=== PATIENT | female | born 1980 | race Caucasian/White ===

== ENCOUNTER 2022-10-08 07:25 | Outpatient (CLI) | payer OTHER, SELFPAY ==
[2022-10-08 07:56] VITALS: PULSE 62; O2SAT 95
[2022-10-08 07:58] VITALS: BP 112/66; PULSE 68; RESP 16; TEMP 37
--- NOTE | 2022-10-08 11:19 | PC.OBNST ---
NST Note NST Note Start: 10/08/22 07:50 Freq: ONCE Status: Discharge Protocol: Document 10/08/22 11:17 EGM (Rec: 10/08/22 11:18 EGM [id number]) NST Note 1 Para (# of births) 0 EDC 10/06/22 Gestational Age In Weeks & Days 40 Weeks & 2 Days High Risk Factors Advanced Maternal Age Patient Presented with Complaint(s) of Contractions/cramping Reactive Yes Appropriate for Gestational Age Yes CLARENCE Bro, RN Date 10/08/22 Reactive Yes Appropriate for Gestational Age Yes CLARENCE Colbert, CLARENCEC Date 10/08/22 OB NST charge Yes Complete NST Note via Write Note Yes The provider's electronic signature indicates the NST is reactive/appropriate for gestational age. *Note to provider: If an addendum is required, open the patient's chart and click on the note under the Nurse/Allied Health tab.
== END 2022-10-08 10:30 | disposition home or self-care (01) ==
LOC: OB OUT 07:29 → OB 07:30
PROVIDERS: Visit Provider Advanced Practice Midwife
DX: O09.523 Supervision of elderly multigravida, third trimester (principal); Z3A.40 40 weeks gestation of pregnancy
CPT/HCPCS: 59025; 99213

== ENCOUNTER 2022-10-09 00:01 | Inpatient (IN) | payer OTHER, SELFPAY ==
[2022-10-08 23:26] VITALS: PULSE 76; O2SAT 98
[2022-10-08 23:32] VITALS: BP 115/59; PULSE 93
[2022-10-08 23:58] LABS: Amnisure Rom* POSITIVE
[2022-10-09] VITALS (37 sets, daily range): BP systolic 93–125; BP diastolic 51–73; PULSE 64–90; RESP 16–18; TEMP 36.6–37.3; O2SAT 91–97; BMI 29.2
[2022-10-09] MEDS: AMPICILLIN 2 GM in 0.9 % SODIUM CHLORIDE Mini-bag 100 ML IVPB (00:42)
--- NOTE | 2022-10-09 01:28 | PM.OBHPLI ---
OB - H&P: HPI Labor/Induction History of Present Illness Date Seen: 10/09/22 Chief Complaint: Ildefonso is a 41 year old 1 para 0 at 40 3/7 weeks gestation by LMP, who presents with rupture of membranes of clear fluid that occurred about 6 pm. Chief complaint: Maternity : 1 Para: 0 Date of last menstrual period: 12/30/21 Estimated date of delivery: 10/06/22 Gestational age based on last menstrual period: 40 Narrative: Ildefonso Richardson is a 41 year old female at 40 3/7 weeks gestation. She was seeing providers at [facility] for care, prior to transferring there she was receiving care at [facility]. She transfered due to relocation but reports she desired CNM care. She presented earlier at this facility in early labor after [facility] was on divert. She desired CNM care. She was discharged home when contractions spaced out but stated she desired to return to [facility] for delivery. Records have been requested, some are here. She reports that she was able to rest after going home. She had return of irregular contractions yesterday evening. Around 6 pm she noted some leaking but thought it was her mucous plug or just increased discharge. She presented to Labor and Delivery around 11 pm. The leaking continued and her amnisure was positive. She continues to have irregular contractions about every 2-5 minutes, varying in intensity. Her labor is supported by her , Rakesh. History of Present Dating criteria: based on LMP care: good care Ultrasounds: normal 1st trimester US, normal mid trimester US (Level II) and other (BPP) Labs Blood type: B (+) positive Rubella: immune RPR/VDLR: nonreactive GBS status: positive HBsAG: negative Narrative: No labs included in transfer records. OB Labs: Records verbally reported from Dr. Tk Roa at [facility] 10/08 Blood type: B+, antibody screen negative. Rubella: Immune RPR: non-reactive HBsAg: negative HIV: negative [id number]: Low risk 1hr gtt: pt reported she passed, not documented in transfer records GBS: Positive IMAGINst trimester: no records received Anatomy scan: 05/25/2022. No abnormalities noted, EFW 55%ile, SIUP. Placenta: posterior Other: 10/04/2022 BPP 10/17 Review of Systems Status of ROS: Reports: 10 or more systems reviewed and unremarkable except as noted in History and below Meds Home Medications and Allergies Home Medications Medication Instructions Recorded Confirmed Type aspirin 81 mg tablet,delayed 81 mg PO DAILY 10/08/22 10/08/22 History release (Adult Aspirin Regimen) levothyroxine 25 mcg/mL oral 13 mcg PO DAILY 10/08/22 10/08/22 History solution vit no.95-ferrous 1 tab PO DAILY 10/08/22 10/08/22 History fumarate 28 mg-folic acid 800 mcg tablet ( Multivitamins) Allergies Allergy/AdvReac Type Severity Reaction Status Date / Time No Known Allergies Allergy Verified 10/08/22 23:37 OB - H&P: Exam Physical Exam: Vital signs: Pulse BP Pulse Ox 81 122/68 98 10/09/22 01:24 10/09/22 01:24 10/08/22 23:26 Temperature 98.6 F 10/09/22 01:24 Pulse Rate 81 10/09/22 01:24 Respiratory Rate 18 10/09/22 01:24 Blood Pressure 122/68 10/09/22 01:24 Blood Pressure Cuca n 88 10/09/22 01:24 Pulse Oximetry 98 10/08/22 23:26 Narrative: Vitals Reviewed Constitutional:? Alert and oriented x3 HEENT:? Normocephalic, atraumatic Neck:? Supple Lungs:? Clear to auscultation bilaterally Heart:? Regular rate and rhythm, no murmur, rub or gallop Abdomen:? Soft, nontender, and gravid. Vertex by Vidal's, confirmed with cervical exam (by RN). Extremities:? No edema or erythema Cervix: 2.5 cm/80%/-1 station/vertex; ROM clear fluid NST: 140 bpm/moderate variability/15x15 accelerations/early decelerations/contractions 2-5 minutes OB - Problem Based A/P Additional Plan (1) PROM with onset of labor within 24 hours of rupture: Status: Acute (2) Pain during labor: Status: Acute (3) 40 weeks gestation of : Status: Acute (4) Advanced maternal age, 1st : Status: Acute (5) Group B Streptococcus carrier state affecting : Status: Acute Plan ASSESSMENT:? 41 at 40 3/7 weeks gestation? complicated by:?AMA, hypothyroid? Labor type: Spontaneous, Early labor? Category 1 FHR pattern.?? Labor complicated by: PROM, GBS +? GBS positive? ? PLAN:? 1. Routine intrapartum cares as ordered. Continue with expectant management? 2. Monitoring per policy, intermittent? 3. Planning unmedicated . Candidate for analgesia of choice if desired. Patient has a detailed plan.?? 4. Patient encouraged to reposition and ambulate to promote physiologic labor and .?She desires to labor alone with partner. 5. GBS phrophylaxis initiated for GBS positive status. Will treat with antibiotics per protocol, Penicillin. 6. Need labs, Hgb, Plts, Blood type. Will attempt to get more complete records when able. No physical lab records avaliable. 7. Anticipate ? Delivery/Labor/Induction Plan Plan: expectant management
[2022-10-09 02:34] LABS: Basophils Percent Auto 0.1 % (0.0-3.0); Hematocrit 36.5 % (33.0-51.0); Hemoglobin* 12.8 gm/dL (12.0-16.0); Immature Granulocytes Pct Auto 0.4 %; Lymphocytes Percent Auto 8.8 % (20-44); Mean Corpuscular HGB Conc 35 gm/dL (32-36); Mean Corpuscular Hemoglobin 33 pg (26-34); Mean Corpuscular Volume 94 fL (80-100); Monocytes Percent Auto 4.7 % (0.0-11.0); Platelet Count* 185 K/uL (140-440); Red Blood Count 3.89 m/uL (4.00-5.20); White Blood Count* 11.22 K/uL (4.50-11.00)
[2022-10-09 02:36] LABS: Slide Review Reflex No
--- NOTE | 2022-10-09 02:37 | PC.NURSE ---
Patient reports one hour glucose monitoring score of 116. Will call previous care team for confirmation in the AM.
[2022-10-09] MEDS: hydrOXYzine pamoate 25 MG CAPSULE 100 MG PO (03:37)
[2022-10-09] MEDS: MORPHINE 10 MG/ML inj IM (03:37)
[2022-10-09] MEDS: AMPICILLIN 1 GM in 0.9 % SODIUM CHLORIDE Mini-bag 100 ML IVPB ×4 (05:08→16:58)
--- NOTE | 2022-10-09 07:24 | PM.OBPNL ---
Subjective Time Seen by Provider: 07:24 Date Seen: 10/09/22 Narrative: Ildefonso is standing by the bedside laboring w/ ctx. She received morphine and Vistaril last night to assist with sleep. She states ctx fairly mild and spaced overnight, but since being up feel stronger and closer together. She is coping well with labor pain/contractions. Her partner is with her for support. She would like to continue with non-pharmacologic methods for comfort and pain management.?? Objective Exam: VSS, afebrile General Appearance:? Calm, cooperative. No acute distress. ? Psychiatric Exam: Alert and oriented, appropriate affect Abdomen: Gravid Ctx: ?Q 2-7 min apart. ?Mild - Moderate FHTs: Baseline: 130. Variability: min. Accels: present. Decels: occ variable and late decelerations. SVE: deferred at this time Membranes: SROM X 13 hours ? Vital Signs: Last Vital Signs Temp 98 F 10/09/22 07:18 Pulse 75 10/09/22 07:16 Resp 16 10/09/22 07:18 BP 119/67 10/09/22 07:16 Pulse Ox 97 10/09/22 07:17 Plan Plan: Assessment:?? G 1 P0 at 40.3 weeks gestation?? GBS positive Patient is coping well with challenges of labor.?? Labor type: Spontaneous, Early labor? complicated by: -AMA -hypothyroid Labor complicated by: -ROM, ?not having adequate ctx -minimal variability w/ accels. Rare variable and late decel noted ? Plan:?? Reviewed recommendation for pitocin as ctx do not appear to be adequate, including increased risk of infection after ROM. She would prefer to see if ctx will supervisor picking crew with movement and positioning first. Will continue to monitor for signs of chorio. SVE deferred at this time to decrease risk of infection. Decreased variability likely r/t pain medications given last night. Will continue to monitor and watch for increasingly regular decels. Continue with routine intrapartum cares as ordered.?? Patient encouraged to move and change positions to promote physiologic labor and .?? Nonpharmacologic comfort measures per patient preference. Candidate for analgesia of choice if desired. Patient declines waterbirth Anticipate progress to NVD.
[2022-10-09] MEDS: OXYTOCIN 10 UNIT/ML INJ IM (18:51)
[2022-10-09] MEDS: miSOPROStoL 800 MCG/4 TABLET PR (18:53)
[2022-10-09] MEDS: METHYLERGONOVINE MALEATE 0.2 MG/ML INJ IM (18:54)
[2022-10-09] MEDS: LACTATED RINGERS 1000 ML 1,000 ML 1200 ML IV (18:58)
[2022-10-09] MEDS: LIDOCAINE 1 % PF 30 ML INJECTION (19:00)
--- NOTE | 2022-10-09 19:46 | W.PM.OBVAGDE ---
OB Procedure Vag Delivery Mother Details Mother Details: The patient is a 41 year-old, 1, Para 0, admitted on 10/09/22 at 40.3 Days gestation. : 1 Para: 1 Weeks Gestation: 40.3 Admission Date: 10/09/22 Additional Details Amniotic Membrane Status: SROM Amniotic Membrane Rupture Date: 10/08/22 Amniotic Membrane Rupture Time: 18:00 Amniotic Membrane Fluid Description: Clear Analgesia/Anesthesia Type: Local (For repair only) Waterbirth: No Pitcoin: No (For AMTSL only) Labor Onset: 13:26 Complete: 17:43 Pushin:40 Heart: heart tones during second stage were 135,min variability, variably decels w/ ctx/pushing, good return to baseline between. Delivery Details Delivery Date: 10/09/22 Delivery Time: 18:51 Route of delivery: Infant Gender: Female Infant Viability: Alive; Heart Rate Present Position at Delivery: OA Delivery Details: Ildefonso's ctx increased in intensity and became closer together just after lunch. She continued to labor with good progress, noting increasing pressure and slight urge to push. SVE done, anterior lip, thin and stretchy. Option of laboring down or trying to reduce reviewed, she opted to try to reduce it. Anterior lip easily reduced w/ next push, noted to be complete, and continued to push in various positions to facilitate descent. At 1851 a viable? female infant delivered in vertex OA presentation over intact perineum via spontaneous vaginal?delivery. ?Infant was placed on maternal abdomen. ?Increased bleeding noted shortly after, and pitocin given. Brisk bleeding continued, decision made to deliver placenta. Cord was clamped and cut. The placenta delivered easily at 185, complete. Brisk bleeding continued and cytotec and Methergine given. Further assessment revealed the fundus was firm and a large amount of the bleeding was coming from bilateral sulcus tears. Pressure held with a sponge on the left side while the right was repaired. Left then repaired. IV fluid bolus infusing. to warmer briefly for further assessment for grunting.? Infant weight pending. ? 8 at 1 minute and 9 at 5 minutes. ?Shoulder dystocia: no. ?Nuchal cord: no. Mother and were stable after?delivery. Lacerations:? Bilateral sulcus lacerations, right with a labial extension, both repaired with 3-0 vicryl.? Anterior periclitoral laceration noted, pressure held, and bleeding resolved. Not deep, and decision made to not repair. Blood loss: 750 mL. Blood loss measurement type: QBL? Sponge and needles counts are correct. 1 Minute Interval Total Score: 8 5 Minute Interval Total Score: 9 Additional Details Shoulder Dystocia: No Placenta Delivery Time: 18:55 Placental Delivery Description: Spontaneous Delivery repair: Vicryl Procedure Done: only Blood Loss: 750 Laceration: Vaginal - 2nd Degree (Bilateral sulcus) Blood Loss Measurement Type: QBL Bakri Used: No Sponge/Need Count Correct: Yes Cord Vessel Description: 3 Vessels Event Summary Status: Mother and were stable after delivery. Disposition: floor
[2022-10-09] MEDS: IBUPROFEN 600 MG TABLET PO (21:10)
[2022-10-09] MEDS: ACETAMINOPHEN 500 MG TABLET 1000 MG PO (23:45)
[2022-10-10 03:54] VITALS: BP 93/59; PULSE 66; RESP 16; TEMP 37.1; O2SAT 95
[2022-10-10 07:05] LABS: Hemoglobin* 9.8 gm/dL (12.0-16.0)
--- NOTE | 2022-10-10 07:34 | PM.OBPNVD1 ---
OB - PN:Subj Subjective Date Seen: 10/10/22 Patient comments OB post-: no complaints, pain well controlled and tolerating diet infant status: and doing well feeding status: exclusively Narrative: Day 1:? Vaginal Delivery at 40 and 2/7 weeks.? ?? Complications:? none? The patient feels well.? The pain is well controlled with current medications.? She has no new complaints.? Urinary output is adequate and she is voiding without difficulty.? Has a good appetite and is tolerating a general diet. She does not yet feel that she is passing flatus and was encouraged to ambulate this morning. Denies abdominal pain and it palpates soft. Has small amount of rubra lochia.? She is ambulating well.? OB - PN: Obj Exam Physical Exam: Vital signs: Temp Pulse Resp BP Pulse Ox O2 Del Method 98.7 F 66 16 93/59 L 95 Room Air 10/10/22 03:54 10/10/22 03:54 10/10/22 03:54 10/10/22 03:54 10/10/22 03:54 10/10/22 03:54 Narrative: GENERAL APPEARANCE:? normal affect, alert, no distress? MOOD:? appropriate? CHEST:? clear to auscultation and percussion? HEART:? regular rate and rhythm? ABDOMEN:? soft, non-tender the uterine fundus is U/2 and off to the right and is appropriate for the stage of recovery.? PERINEUM:? mild edema of the perineum, there is bilateral sulcal tears that are healing well.? EXTREMITIES:? normal and no edema? OB - PN: Obj Data Labs Labs: Laboratory Results - last 24 hr 10/10/22 06:36 Hgb 9.8 L OB - PN: A/P Delivery Assessment and Plan (1) Advanced maternal age, 1st : Status: Acute (2) care following vaginal delivery: Status: Acute (3) Lactating mother: Status: Acute (4) Anemia, : Status: Acute Plan day: 1 Plan: routine care Comments: PO iron supplementation ordered. Anticipate discharge tomorrow.
[2022-10-10 08:37] VITALS: BP 102/66; PULSE 78; RESP 16; TEMP 37.1; O2SAT 96
[2022-10-10] MEDS: FERROUS SULFATE 325 MG TABLET PO (08:48)
[2022-10-10] MEDS: DOCUSATE SODIUM 100 MG CAPSULE PO (08:48)
[2022-10-10 11:57] VITALS: BP 103/67; PULSE 84; RESP 16; TEMP 36.2; O2SAT 96
[2022-10-10 15:43] VITALS: BP 106/67; PULSE 84; RESP 16; TEMP 36.8; O2SAT 96
[2022-10-10] MEDS: IBUPROFEN 600 MG TABLET PO (15:53)
[2022-10-11 00:15] VITALS: BP 95/57; PULSE 85; RESP 16; TEMP 36.8; O2SAT 97
[2022-10-11] MEDS: IBUPROFEN 600 MG TABLET PO (06:20)
[2022-10-11 07:37] VITALS: BP 94/52; PULSE 79; RESP 16; TEMP 36.9; O2SAT 97
[2022-10-11] MEDS: DOCUSATE SODIUM 100 MG CAPSULE PO (07:45)
--- NOTE | 2022-10-11 08:20 | P.DS_ITS ---
DS: Providers Provider Date Seen: 10/11/22 Date of admission: 10/09/22 00:01 Primary care physician: Not a Local Provider Admitting Clinician: Indigo Funes CNM Attending Physician on discharge: Indigo Funes CNM DS: Diagnosis Discharge Diagnosis (1) Lactating mother: Status: Acute (2) Anemia, : Status: Acute (3) care and examination immediately after delivery: Status: Acute Exam Narrative: Exam Narrative: GENERAL APPEARANCE:? normal affect, alert, no distress MOOD:? appropriate CHEST:? clear to auscultation HEART:? regular rate and rhythm ABDOMEN:? soft, non-tender the uterine fundus is 1 below Umbilicus, Midline and is appropriate for the stage of recovery. PERINEUM:? mild edema of the perineum, there is a vaginal laceration, that is healing well. EXTREMITIES:? normal and trace edema Const: Vital Signs, click to edit/add: Vital Signs - 24 hr 10/10/22 08:37 10/10/22 11:57 10/10/22 15:43 Temperature 98.7 F 97.2 F L 98.3 F Pulse Rate [Pulse Oximeter] 78 84 84 Respiratory Rate 16 16 16 Blood Pressure [Ri ght Arm] 102/66 103/67 106/67 Pulse Oximetry 96 96 96 Oxygen Delivery Me thod Room Air Room Air Room Air 10/11/22 00:15 10/11/22 07:37 Temperature 98.2 F 98.5 F Pulse Rate [Pulse Oximeter] 85 79 Respiratory Rate 16 16 Blood Pressure [Ri ght Arm] 95/57 L 94/52 L Pulse Oximetry 97 97 Oxygen Delivery Me thod Room Air Room Air Documenting provider has reviewed patient's vital signs: yes OB - DS: Summary Hospital Course Hospital Course: Ildefonso is a 41 y.o. G 1 P 1 who was admitted to [facility] for PROM w/ spontaneous onset of labor. ?She had an uncomplicated NVD. The patient feels well. ?The pain is well controlled with current medications. ?She has no new complaints. ?She is breast feeding and reports things are going well. the patient has done well.? Vitals have been stable.? She has remained afebrile.? Has a good appetite, is tolerating a general diet. ?She is voiding without difficulty.? She is passing gas and has not had a bowel movement.? She is ambulating and denies any dizziness.? Has scant amount of rubra lochia. Problems: none plan: Discharge home with baby. Follow up in 2 weeks and 6 weeks. , may see if needed Hgb 9.8, recommend iron supplement . Ordered. Peripartum Data Infant delivery method: Vaginal Laceration description: Vaginal - 2nd Degree (Bilateral) complications: none Bennett Gender: Female Discharge Plan: Home Status at Discharge Functional status at discharge: independent ambulation Overall status at discharge: patient is progressing back to baseline Time Spent with Patient Time attestation: Total time spent providing and/or coordinating discharge services: Discharge Plan Discharge Disposition: Home, Self-Care Date of Admission: 10/09/22 00:01 Primary Care Provider: Provider,Not a Local Condition: Stable Anticipated Discharge Date/Time: 10/11/22 12:00 Discharge Medications: New docusate sodium 100 mg Capsule 100 mg PO DAILY Qty: 90 0RF acetaminophen 500 mg Tablet 1,000 mg PO Q6H PRNQty: 0 0RF ferrous sulfate 325 mg (65 mg iron) Tablet 325 mg PO Q48H Qty: 90 0RF ibuprofen 600 mg Tablet 600 mg PO Q6H PRNQty: 60 0RF Continued PNV cmb#95-ferrous fumarate-FA [ Multivitamins] 28 mg iron- 800 mcg ta blet 1 tab PO DAILY levothyroxine 25 mcg/mL solution 13 mcg PO DAILY Discontinued aspirin [Adult Aspirin Regimen] 81 mg tablet,delayed release (DR/EC) 81 mg PO DAILY Discharge Orders: Discharge Order (Routine); Ordered 10/11/22 Ordered By: Indigo Funes Patient Education: OB Over the Counter Medication Information, OB Vaginal/Breast Feeding Additional Instructions: Discharge instructions were reviewed with the patient including signs and symptoms of infection and home going medications Nothing vaginally for 6 weeks: no tampons or intercourse Do not drive while taking narcotic pain medication(s) Off Work or School for 6 weeks 2-week visit: discuss feeding concerns, review control options and screen for anxiety/depression. 6-week visit for an annual exam. consultation services are available to all mothers and babies for the first year after delivery.? To make an appointment, please call [phone]. Activity Level: Activity as Tolerated Discharge Diet: Regular Follow Up Appointments: [facility] [Provider Group] Forms: [employer] Info Instructions
== END 2022-10-11 13:20 | disposition home or self-care (01) | DRG 806 ==
LOC: OB OUT 10-12 11:36 → OB 10-12 11:36
PROVIDERS: Advanced Practice Midwife; Admitting Provider Advanced Practice Midwife; Visit Provider Advanced Practice Midwife
DX: O42.02 Full-term premature rupture of membranes, onset of labor within 24 hours of rupture (principal); D62 Acute posthemorrhagic anemia; Z37.0 Single live birth; O71.4 Obstetric high vaginal laceration alone; O90.81 Anemia of the puerperium; O99.824 Streptococcus B carrier state complicating childbirth; O99.284 Endocrine, nutritional and metabolic diseases complicating childbirth; E03.9 Hypothyroidism, unspecified; Z3A.40 40 weeks gestation of pregnancy
CPT/HCPCS: 36415; 84112; 85018; 85025; 86850; 86900; 86901; 99213; A9270; J0290; J2001; J2210; J2270; J2590; J7120

== ENCOUNTER 2024-01-09 13:59 | Outpatient (CLI) | payer OTHER, SELFPAY ==
[2024-01-11 14:48] LABS: HPV Source Cervical; HPV, High Risk by TMA Not Detected
== END 2024-01-09 14:00 | disposition home or self-care (01) ==
PROVIDERS: Visit Provider Advanced Practice Midwife
DX: Z01.419 Encounter for gynecological examination (general) (routine) without abnormal findings (principal); E03.9 Hypothyroidism, unspecified; Z12.4 Encounter for screening for malignant neoplasm of cervix; Z11.51 Encounter for screening for human papillomavirus (HPV)
CPT/HCPCS: 84443; 87624; 87625; 88141; 88142

== ENCOUNTER 2024-04-17 10:00 | Outpatient (RCR) | payer OTHER, SELFPAY | END 2024-08-15 23:59 | disposition home or self-care (01) | PROVIDERS: Visit Provider Advanced Practice Midwife | DX: N81.89 Other female genital prolapse (principal); Z51.89 Encounter for other specified aftercare | CPT/HCPCS: 97110; 97140; 97162; 97535 ==

== ENCOUNTER 2024-04-25 08:13 | Outpatient (CLI) | payer OTHER, SELFPAY | END 2024-04-25 08:14 | disposition home or self-care (01) | LOC: US 08:14 | PROVIDERS: Visit Provider Registered Nurse | DX: Z34.91 Encounter for supervision of normal pregnancy, unspecified, first trimester (principal); O20.9 Hemorrhage in early pregnancy, unspecified; Z3A.08 8 weeks gestation of pregnancy | CPT/HCPCS: 76817; 84443 ==

== ENCOUNTER 2024-05-06 17:06 | Outpatient (CLI) | payer OTHER, SELFPAY | END 2024-05-06 17:07 | disposition home or self-care (01) | LOC: US 17:07 | PROVIDERS: Visit Provider Registered Nurse | DX: O28.8 Other abnormal findings on antenatal screening of mother (principal); O20.9 Hemorrhage in early pregnancy, unspecified; Z3A.09 9 weeks gestation of pregnancy | CPT/HCPCS: 76817 ==

== ENCOUNTER 2024-08-29 14:04 | Outpatient (CLI) | payer OTHER, SELFPAY ==
--- NOTE | 2024-08-29 14:00 | CRLHL7_ITS ---
For Patients: As a result of the Century Cures Act, medical imaging exams and procedure reports are released immediately into your electronic medical record. You may view this report before your referring provider. If you have questions, please contact your health care provider. INDICATION: First trimester dating and viability. TECHNIQUE: Ultrasound OB pelvis transvaginal. Real-time khan-scale imaging of the pelvis was performed. COMPARISON: None. FINDINGS: Intrauterine gestation: Single. heart activity (bpm): None detected Brice-rump length: 2 cm. Gestational sac: 3.5 cm Estimated ultrasound age: 8 weeks 4 days. DRE by ultrasound: 04/06/2025. Yolk sac: Normal. Perigestational hemorrhage: None. Ovaries and adnexa: The bilateral ovaries are unremarkable. Right corpus luteal cyst. Suspicious pelvic fluid collections: Small subchorionic hemorrhage adjacent to the gestational sac measuring 1 x 0.3 x 0.4 cm.. IMPRESSION: Intrauterine gestation with a crown-rump length of 2 cm and no cardiac activity detected. Findings are compatible with demise. Please correlate with beta HCG levels. Small subchorionic hemorrhage adjacent to the gestational sac measuring up to 1 cm. Dictated by Reyna Lorenzo MD @ 08/29/2024 3:14:18 PM (Electronically Signed)
--- OUTSIDE RECORDS SUMMARY | 2024-08-30 00:52 | XMS_ITS | Clinical Summary ---
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 Gender Identity Not on file Sexual Orientation Not on file Plan of Treatment Health Maintenance Due Date Last Done Comments ADVANCE CARE PLANNING 1979 ANNUAL REVIEW OF HM ORDERS 1979 DIABETES SCREENING 1979 YEARLY PREVENTIVE VISIT 11/22/1982 HIV SCREENING 11/22/1994 HEPATITIS C SCREENING 11/22/1997 HEPATITIS B VACCINE (1 of 3 - 19+ 3-dose series) 11/22/1998 PAP 11/22/2000 DTAP/TDAP/TD VACCINE (1 - Tdap) 11/22/2004 LIPID 2019 MAMMO SCREENING 07/24/2020 07/24/2018 COVID-19 VACCINE (1 - 2023-2 5 season) 2023 PHQ-2 (once per calendar year) 2024 INFLUENZA VACCINE (Season Ended) 2024 ZOSTER VACCINE (1 of 2) 11/22/2029 HPV VACCINE Aged Out No longer eligi ble based on patient's age to complete this topic MENINGITIS VACCINE Aged Out No longer eligible based on patient's age to complete this topic PNEUMOCOCCAL VACCINE: PEDIAT RICS (0 to 5 YEARS) AND AT-RISK PATIENTS (6 to 49 YEARS) Aged Out No longer eligi ble based on patient's age to complete this topic Procedures Procedure Name Priority Date/Time Associated Diagnosis Comments MA SCREENING DIGITAL BILATERAL Routine 07/24/2018 8:06 AM CDT Family history of breast cancer from Last 3 Months or Most Recently Relevant to Health Maintenance Results * *MA Screening Digital Bilateral (07/24/2018 8:06 AM CDT) Anatomical Region Laterality Modality Breast Bilateral Mammography Impressions 07/24/2018 1:45 PM CDT IMPRESSION: BI-RADS CATEGORY: 1 - NEGATIVE. RECOMMENDED FOLLOW-UP: Annual Mammography. The patient will be notified of the results. SABRINA HOLCOMB MD Narrative 07/24/2018 1:45 PM CDT Examination: Bilateral digital screening mammography with computer aided detection, 07/24/2018 8:06 AM. Comparison: None History: No current breast concerns. Paternal grandmother and maternal grandmother both with breast cancer. BREAST DENSITY: Heterogeneously dense. COMMENTS: No suspicious finding. Procedure Note Sabrina Holcomb MD - 07/24/2018 Examination: Bilateral digital screening mammography with computer aided detection, 07/24/2018 8:06 AM. Comparison: None History: No current breast concerns. Paternal grandmother and maternal grandmother both with breast cancer. BREAST DENSITY: Heterogeneously dense. COMMENTS: No suspicious finding. IMPRESSION: BI-RADS CATEGORY: 1 - NEGATIVE. RECOMMENDED FOLLOW-UP: Annual Mammography. The patient will be notified of the results. SABRINA HOLCOMB MD Jerrica Vicente APRN TESTER ELECTRONIC SCALE IMG MAMMOGRAPHY ORD ERABLES Final Result from Last 3 Months or Most Recently Relevant to Health Maintenance Insurance [facility] [employer] Care Teams Memory Care Program Resident Relationship Specialty Start Date End Date No Ref-Primary, Physician PCP - General 10/17/21
--- OUTSIDE RECORDS SUMMARY | 2024-08-30 00:52 | XMS_ITS | Clinical Summary ---
Author Organization [facility] Address [address], [place] [address] Care Team Providers Care Court Officer Name Role Phone Pcp, Pt Declines MD Primary Care Provider [phone] Source Comments You are receiving this document as you are listed as the primary care provider,follow-up provider, or the patient has been referred to you for consultation.This is in compliance with the Medicare and[facility] EHR Incentive Program,which states Providers who transition their patient to another setting of careor provider of care or refers their patient to another provider of care shouldprovide summary care record for each transition of care or referral. [facility] Allergies No known active allergies Medications No known medications Active Problems No known active problems Social History Tobacco Use Types Packs/Day Years Used Date Smoking Tobacco: Never Smokeless Tobacco: Never Alcohol Use Standard Drinks/Week Comments Yes 0 (1 standard drink = 0.6 oz pur e alcohol) 5-7 per week Comments Unknown Sex and Gender Information Value Date Recorded Sex Assigned at Not on file Legal Sex Female 10:08 AM CUSTOMS COMPLIANCE ANALYST Gender Identity Not on file Sexual Orientation Not on file Last Filed Vital Signs Vital Sign Reading Time Taken Comments Blood Pressure 109/63 09/06/2018 2:51 PM CDT Pulse 60 09/06/2018 2:51 PM CDT Temperature 35.7 C (96.3 F) 02/13/2018 8:11 AM CUSTOMS COMPLIANCE ANALYST Respiratory Rate 12 09/06/2018 2:51 PM CDT Oxygen Saturation 100% 02/13/2018 9:03 AM CUSTOMS COMPLIANCE ANALYST Inhaled Oxygen Concentration - - Weight 70.3 kg (155 lb) 08/20/2018 2:39 PM CDT Height 165.1 cm (5' 5) 08/20/2018 2:39 PM CDT Body Mass Index 25.79 08/20/2018 2:39 PM CDT Plan of Treatment Health Maintenance Due Date Last Done Comments Cervical Cancer Screening Due 1979 Hep C Screening (Preventive Services) 1980 Mammogram 1979 HIV Screening (Preventive Services) 1995 Adult Preventive Visit 11/22/1997 DTaP/Tdap/Td Vaccine (1 - Tdap) 11/22/1998 HepB Vaccine (1) 11/22/1998 COVID-19 Vaccine (1 - 2023-2 5 season) 2023 Influenza Vaccine (Season Ended) 2024 Zoster/Shingles Vaccine (1 of 2) 11/22/2029 HPV Vaccine Aged Out No longer eligi ble based on patient's age to complete this topic HepA Vaccine Aged Out No longer eligi ble based on patient's age to complete this topic Hib Vaccine Aged Out No longer eligi ble based on patient's age to complete this topic IPV (Polio) Vaccine Aged Out No longe r eligible based on patient's age to complete this topic MCV4 Vaccine Aged Out No longer eligi ble based on patient's age to complete this topic Meningococcal B Vaccine Aged Out No l onger eligible based on patient's age to complete this topic Pneumococcal Vaccine Aged Out No long er eligible based on patient's age to complete this topic Insurance [employer] Care Teams Court Officer Relationship Specialty Start Date End Date Pcp, Pt Robert, [place] [address] PCP - General 02/06/18
--- OUTSIDE RECORDS SUMMARY | 2024-08-30 00:52 | XMS_ITS | Clinical Summary ---
Author Organization [facility] Address [address] [place] [id number] Care Team Providers Care Air Gun Operator Name Role Phone Pcp, No Primary Care Provider Unavailabl Tk Bucio Dejuan DO Unavailable Allergies No known active allergies Medications levothyroxine (SYNTHROID) 25 mcg tablet Take 25 mcg by mouth once daily. Active PNV 3-IRON FUM,GLUC-FOLIC ACID ORAL Take by mouth. Active Active Problems Problem Noted Date Diagnosed Date Hypothyroid in , antepartum 10/04/2022 Group B streptococcal infection during 09/29/2022 Supervision of high risk , antepartum 0 09/25/2022 Overview (09/25/2022): Dated by: LMP, consistent with tri US Prepregnancy BMI: no vitals done at this visit concerns/risk factors: AMA Initial labs: 02/23/22- Hep B neg, HCV neg, HIV neg, chlamydia/gonorrhea neg. 04/27/22: B+, Rubella Immune Early GCT: not indicated HSV: ASA: Not taking Previous deliveries reviewed by MD: Genetic Testing: Done- normal History of abnormal pap: Yes - colp in 2008, normal since Anatomy US 19-20 weeks: L2- see records 24-28 week labs: Rhogam indicated: No B+ Tdap/Flu shot: 01/13/23 36 week GBS: No Known Allergies Covid Screening: PP Contraception plan: AMA (advanced maternal age) multigravida 35+ Immunizations Immunization Administration Dates Next Due Tdap 07/13/2022,10/22/2021 Family History Medical History Relation Name Comments Good Health Brother Good Health Father Cancer Maternal Grandfather Aortic aneurysm Maternal Grandmother Cancer Maternal Grandmother Cancer-breast Maternal Grandmother Good Health Mother No Known Problems Paternal Grandfather Cancer-breast Paternal Grandmother Relation Name Status Comments Brother Alive Father Alive Maternal Grandfather Maternal Grandmother Mother Alive Paternal Grandfather Paternal Grandmother Social History Tobacco Use Types Packs/Day Years Used Date Smoking Tobacco: Never Smokeless Tobacco: Never Alcohol Use Standard Drinks/Week Comments No 0 (1 standard drink = 0.6 oz pur e alcohol) PHQ-2 Answer Date Recorded PHQ-2 TOTAL SCORE 0 09/29/2022 Comments No Sex and Gender Information Value Date Recorded Sex Assigned at Not on file Legal Sex Female 6:10 AM SENIOR PREMIUM AUDITOR Gender Identity Not on file Sexual Orientation Not on file Obstetrics History Para Term AB IAB SAB Ectopic Multiple Livin g Live Births 1 Date Outcome GA Total Labor Labor/2nd/3rd Weight Sex Type Anes PTL Kaye A1 A5 Name Clin Last Filed Vital Signs Vital Sign Reading Time Taken Comments Blood Pressure 108/72 10/04/2022 11:41 AM CDT Pulse 70 10/04/2022 11:41 AM CDT Temperature 36.3 C (97.4 F) 10/22/2021 1:19 PM CDT Respiratory Rate 16 10/22/2021 1:19 PM CDT Oxygen Saturation 100% 10/22/2021 1:19 PM CDT Inhaled Oxygen Concentration - - Weight 78.9 kg (174 lb) 10/04/2022 11:41 AM CDT Height 161.9 cm (5' 3.75) 09/29/2022 11:09 AM C DT Body Mass Index 30.1 09/29/2022 11:09 AM CDT Plan of Treatment Health Maintenance Due Date Last Done Comments Hepatitis B series for 19+ (1 of 3 - 19+ 3-dose series) 11/22/1998 Pap test for age 21-65 04/18/2021 9 (Completed outside of [facility]) BMI (ht and wt on same day) for age 18+ 09/30/2023 09/29/2022 Depression screening for age 12+ 10/05/2023 10/04/2022, 09/29/2022 COVID-19 vaccine series ( season) 2023 Influenza Vaccine (Season Ended) 2024 Tetanus booster 07/13/2032 07/13/2022, 10/22/2021 HIV for age 15-65 Completed 02/23/2022 (Co mpleted outside of [facility] [place]) Hepatitis C screening for age 18-79 Completed 02/23/2022 (Completed outside of [facility] [place]) Tdap Completed 07/13/2022, 10/22/2021 Pneumococcal series for age 6-49 Aged Out No longer eligible based on patient's age to complete this topic Insurance [employer] Member Subscriber Plan / Payer (Ef fective 2021-Present) Name:Ildefonso Richardson Relation to Subscriber:Self Name:Ildefonso Richardson Payer ID:[id number] (NAIC) Type:Not on file Address: [facility] [id number] [facility] Care Teams Air Gun Operator Relationship Specialty Start Date End Date Pcp, No . PCP - General 10/22/21 Tk Roa DO . Referring Provider Obstetrics and Gynecology 05/01/22
== END 2024-08-29 14:05 | disposition home or self-care (01) ==
LOC: US 14:04
PROVIDERS: Visit Provider Registered Nurse
DX: Z34.91 Encounter for supervision of normal pregnancy, unspecified, first trimester (principal); O20.9 Hemorrhage in early pregnancy, unspecified; Z3A.08 8 weeks gestation of pregnancy
CPT/HCPCS: 76817

== ENCOUNTER 2024-09-24 08:27 | Outpatient (CLI) | payer BC, SELFPAY ==
--- NOTE | 2024-09-24 08:45 | US_ITS ---
Patient: SIERRA OCONNOR Facility:?[facility] Patient ID:?[id number] Site Patient ID:?[id number]. Site :?[id number] Study:?US-Pelvis TRANSVAGINAL-09/24/2024 9:18:50 AM Ordering Physician:Deepali Alvarado Final Report: INDICATION: Incomplete spontaneous . TECHNIQUE: Ultrasound pelvis transvaginal for better assessment or to better visualize the endometrium. Real-time sonographic images with spectral and color Doppler imaging of the ovaries were obtained. FINDINGS: Uterus: Size: 8.6 x 4.9 x 5.8 cm. Mass: No. Endometrium: Transvaginal imaging was performed to better evaluate the endometrium. Heterogeneous. 1.7 centimeters in thickness with internal vascularity. Right ovary: Size: 3.4 x 1.7 x 2.6 cm. Mass: No. Blood flow: Normal arterial and venous blood flow. Left ovary: Size: 3.2 x 1.2 x 2.3 cm. Mass: No. Blood flow: Normal arterial and venous blood flow. Cul-de-sac and adnexa: Significant free Fluid: No. Mass: No. IMPRESSION: 1. Heterogeneous thickened endometrium with internal vascularity suspicious for retained products of conception. Dictated by Vitaliy Jarquin MD @ 09/24/2024 9:27:28 AM ----- ADDENDUM ----- Addendum: Case discussed with the ordering provider at approximately 9:30 a.m. on 09/24/2024. Dictated by Vitaliy Jarquin MD @ Sep 24 2024 9:44AM Signed by:?Vitaliy Jarquin MD @09/24/2024 9:27:28 AM (Electronic Signature)
== END 2024-09-24 08:28 | disposition home or self-care (01) ==
LOC: US 08:27
PROVIDERS: Visit Provider Registered Nurse
DX: O03.4 Incomplete spontaneous abortion without complication (principal)
CPT/HCPCS: 76830; J1100; J2250; J2405; J2704; J3010

== ENCOUNTER 2024-09-26 06:00 | Day surgery (SDC) | payer BC, SELFPAY ==
[2024-09-26] VITALS (37 sets, daily range): BP systolic 89–112; BP diastolic 48–77; PULSE 46–90; RESP 12–20; TEMP 36.6–37.6; O2SAT 92–100; BMI 24.4
[2024-09-26 06:42] LABS: Hemoglobin* 9.1 gm/dL (12.0-16.0)
[2024-09-26] MEDS: DOXYCYCLINE HYCLATE 100 MG 200 MG PO (06:45)
[2024-09-26] MEDS: LACTATED RINGERS 1000 ML 1,000 ML 100 ML IV ×2 (06:48→09:57)
[2024-09-26] MEDS: SODIUM CHLORIDE 0.9 % (FLUSH) 10 ML SYRINGE IVF (06:48)
--- NOTE | 2024-09-26 07:06 | W.PM.H&PU ---
History & Physical Update History & Physical Update H&P Reviewed and patient assessed: No changes noted H&P Updates: Ildefonso is a 43yo seen in pre-op prior to planned hysteroscopy and resection of possible retained POC vs suction D&C. She saw [facility] after our visit, where they requested an hCG be trended in the perioperative period - this was added onto her labs today. We again reviewed the risks, benefits and alternatives to the planned procedure. Plan hysteroscopy with resection of retained POC via Truclear if adequate visualization is possible. If persistent bleeding is noted, I explained this would prevent a hysteroscopic resection where instead I would proceed with suction D&C. Patient expressed understanding and is in agreement. Reviewed risk of surgery including bleeding, infection, damage to surrounding structures, uterine perforation (requiring laparoscopy), uterine synechiae and incomplete removal of all retained POC. Written consent was signed 09/24/24. Post-procedure restrictions and expectations reviewed. Pre-op labs reviewed, hemoglobin stable at 9.1. Doxycycline as perioperative antibiotics.
[2024-09-26 07:15] LABS: Hematocrit 28.3 % (33.0-51.0); Immature Granulocytes Abs Auto 0.01 K/uL (0.00-0.30); Immature Granulocytes Pct Auto 0.2 %; Lymphocytes Absolute Auto 1.91 K/uL (0.90-2.90); Mean Corpuscular HGB Conc 33 gm/dL (32-36); Mean Corpuscular Hemoglobin 30 pg (26-34); Mean Corpuscular Volume 93 fL (80-100); RDW Coefficient of Variation % 14.2 % (11.5-15.5); Red Blood Count 3.05 m/uL (4.00-5.20); White Blood Count* 4.55 K/uL (4.50-11.00)
[2024-09-26 07:19] LABS: HCG Quantitative* 47.42 mIU/mL
[2024-09-26] MEDS: BUPIVACAINE 0.25% 30 ML 20 ML INJECTION (07:36)
[2024-09-26 07:38] LABS: Slide Review Reflex No
--- NOTE | 2024-09-26 07:42 | SUR.OPER ---
PATIENT QUESTIONS ANSWERED SATISFACTORILY PREOPERATIVELY. PATIENT BROUGHT TO OR #4 PER CART. Patient positioned supine on OR #4 bed for the induction. Pt. then moved into the lithotomy position for the procedure. ? Final approval of positioning by surgeon.
--- NOTE | 2024-09-26 07:44 | SUR.OPER ---
Continuous irrigation of the uterus with saline during the procedure.
[2024-09-26] MEDS: SILVER NITRATE APPLICATOR 1 EACH STICK..EA. 2 EACH TOPICAL (07:58)
--- NOTE | 2024-09-26 08:04 | W.PM.GYNPROC ---
Procedure Note Time Seen by Provider: 08:06 Date of procedure: 09/26/24 Will [facility] bill your pro fee for this procedure?: Yes Pre-op diagnosis: Suspected retained products of conception Incomplete Procedure: Hysteroscopy, dilation and curettage Resection of retained products of conception Anesthesia: MAC and local Complications: None Surgeon: Yanet Hernandez MD Estimated blood loss (mL): 25 IV fluids (mL): 400 Urine Output (mL): 200 Pathology: specimen obtained, sent to pathology Condition: stable Disposition: same day Findings: Unremarkable external genital exam Vaginal mucosa is pink well-rugated Cervix appears unremarkable Endometrial cavity assessment notable for thickened white to violaceous tissue noted across the posterior midline and toward right fundus, concerning for retained products of conception Procedure Description: Procedure in detail: Patient was taken to the operating room with IV running. She received preoperative doxycycline. She was positioned in dorsal lithotomy position with her legs fully supported in Yellofin stirrups. Monitored anesthesia care was administered. She was prepped and draped in the usual sterile fashion. Exam under anesthesia was performed for the above-noted findings. In and out catheterization performed. Speculum was inserted. Cervix visualized and grasped along the anterior lip with a single-tooth tenaculum. Paracervical block was performed in the usual fashion with a total of 20 mils of 0.25% bupivacaine. Dilute vasopressin (10 units in 50 mL of injectable saline) was injected into the cervical stroma circumferentially, total 10 mL. Cervix was serially dilated to accommodate the TRUCLEAR hysteroscope. This was assembled with saline inflow and outflow in place. The line was flushed of bubbles. The hysteroscope was advanced through the cervix into the endometrial cavity for the above noted findings. The tissue morcellator was then inserted through the operating channel. Window lock was performed. Under direct visualization, resection of suspected retained products was started at the right cornua working proximal to distal and lateral to media. Continued resection until focal retained tissue was completely removed, until normal endomyometrial tissue was encountered. Small volume bleeding was noted throughout resection, visualization was able to be adequately maintained. The entire cavity could be a visualized after complete resection, demonstrating normalization of the cavity. The hysteroscope and morcellator were then removed from the uterus. Tenaculum was removed from the anterior lip of cervix. Hemostasis was noted with pressure and silver nitrate. Patient tolerated procedure well. She was taken to recovery area in stable condition. Surgical debrief completed. Fluid deficit of 525 mL, urine output of 200 mL, EBL of 25 mL, IV fluid 400 mL. Pathology is endometrial curettings with suspicion for retained products of conception, sent for pathologic evaluation.
--- NOTE | 2024-09-26 08:13 | P.ANES_ITS ---
Anesthesia Charges Start Date/Time Anesthesia Start Date: 09/26/24 Anesthesia Start Time: 07:14 Stop Date/Time Anesthesia Stop Date: 09/26/24 Anesthesia Stop Time: 08:13 Coding CPT Codes CPT Codes: ANESTH HYSTEROSCOPE/GRAPH - 66682 ([id number]) P1 - NORMAL HEALTHY PATIENT, QK - JAW SKINNER 2-4 CNCRNT ANES PROC
--- NOTE | 2024-09-26 08:13 | W.ANESCHARGE ---
Anesthesia Charges Start Date/Time Anesthesia Start Date: 09/26/24 Anesthesia Start Time: 07:14 Stop Date/Time Anesthesia Stop Date: 09/26/24 Anesthesia Stop Time: 08:13 Coding CPT Codes CPT Codes: ANESTH HYSTEROSCOPE/GRAPH - 33129 ([id number]) P1 - NORMAL HEALTHY PATIENT, QK - MAGNETIC RESONANCE IMAGING COORDINATOR 2-4 CNCRNT ANES PROC
--- NOTE | 2024-09-26 08:13 | SUR.OPER ---
FLUID DEFECIT OF 525cc.
--- NOTE | 2024-09-26 08:33 | P.ANES_ITS ---
Anesthesia Charges Start Date/Time Anesthesia Start Date: 09/26/24 Anesthesia Start Time: 07:14 Stop Date/Time Anesthesia Stop Date: 09/26/24 Anesthesia Stop Time: 08:13 Coding CPT Codes CPT Codes: ANESTH HYSTEROSCOPE/GRAPH - 95252 ([id number]) P1 - NORMAL HEALTHY PATIENT, QK - COMMISSION SPECIALIST 2-4 CNCRNT ANES PROC, QX - INSERT CUTTER SVC W/ MED DIRECTION
--- NOTE | 2024-09-26 08:33 | W.ANESCHARGE ---
Anesthesia Charges Start Date/Time Anesthesia Start Date: 09/26/24 Anesthesia Start Time: 07:14 Stop Date/Time Anesthesia Stop Date: 09/26/24 Anesthesia Stop Time: 08:13 Coding CPT Codes CPT Codes: ANESTH HYSTEROSCOPE/GRAPH - 79594 ([id number]) P1 - NORMAL HEALTHY PATIENT, QK - INNER LAYER SCRUBBER TENDER 2-4 CNCRNT ANES PROC, QX - COMPUTER TYPESETTER SVC W/ MED DIRECTION
[2024-09-26 09:26] LABS: Hematocrit 29.7 % (33.0-51.0); Hemoglobin* 9.5 gm/dL (12.0-16.0); Immature Granulocytes Abs Auto 0.06 K/uL (0.00-0.30); Immature Granulocytes Pct Auto 1.0 %; Lymphocytes Absolute Auto 1.48 K/uL (0.90-2.90); Mean Corpuscular HGB Conc 32 gm/dL (32-36); Mean Corpuscular Hemoglobin 30 pg (26-34); Mean Corpuscular Volume 94 fL (80-100); RDW Coefficient of Variation % 14.3 % (11.5-15.5); Red Blood Count 3.15 m/uL (4.00-5.20); White Blood Count* 6.09 K/uL (4.50-11.00)
--- NOTE | 2024-09-26 09:36 | P.GYNPN_ITS ---
BUCKSHOT SWAGE OPERATOR - A/P Postoperative Procedures: Procedures Operation Date: 09/26/24 07:15 Actual Procedure Side Surgeon p Hysteroscopy, Dilation & Curettage Dorota Hernandez MD Operation Date: 09/26/24 09:15 <No data on this case meets the specified criteria> Time Spent With Patient Time: Total time spent is greater than 50% in coordination of care (as documented) at patient's floor/unit and/or counseling patient: Time with patient: 25 - 35 minutes BUCKSHOT SWAGE OPERATOR- PN:Subj Post-Op Subjective Time Seen by Provider: 09:36 Date Seen: 09/26/24 Interval history: Ildefonso is a 43-year-old seen on postop day 0 from hysteroscopy and dilation and curettage in the setting of suspected retained products of conception. Her procedure was uncomplicated - entire procedure done under direct visualization with suspected complete resection of all retained POC. QBL of 25mL, fluid deficit 525mL. At 0906, I was notified that patient was having postoperative bleeding. Presented to the bedside in same-day surgery. Patient had soaked a pad, and saturated about a 13cm peoria of the underlying chucks pad. Patient is noted to be hemodynamically stable, with blood pressure of 104/68 and pulse in the 50s to 60s. She is well appearing, in no acute distress. Stat CBC and coags were requested, cross match for 2u pRBCs. Baseline hemoglobin of 9.1. On exam, perineum was noted to be wet with bright red blood. Encouraged her to Valsalva, where she spontaneously expressed a 7x4cm blood clot. Speculum inserted, vaginal mucosa is pink well rugated. Cervix visualized, small clot noted at the external os. Oozing noted around this, but no heavy bleeding. Tenaculum sites dry. Speculum removed, where manual exam was performed - fundal height was noted to be advanced from that at the completion of my case previously, now about 8 weeks in size. Tone is appropriate, no further expression of clots on bimanual exam. Explained that I am concerned for abnormal bleeding the immediate post-operative state, where given her baseline anemia of 9.1 I do feel the safest next step would be to return to the OR for exam under anesthesia, suction D&C under US guidance and likely placement of an intrauterine balloon for tamponade. Discussed potential etiologies of bleeding including bleeding at the resection bed, uterine AVM, persistent retained POC, atony. If bleeding persists despite conservative efforts, discussed possibility of transfer to a facility with access to IR in case UAE were to be required. If she has heavy bleeding and is not responsive to conservative efforts, this would potentially require exploratory laparotomy and hysterectomy only if needed to save her life. Explained this is exceedingly unlikely, and would only be performed as a life saving measure. Plan to administer 1g IV TXA with start of procedure, plan Methergine as likely uterotonic. All questions answered. RN to call and notify her family with change in plan. BUCKSHOT SWAGE OPERATOR-PN: Obj Exam Physical Exam: Vital signs: Temp Pulse Resp BP Pulse Ox O2 Del Method 97.9 F 63 16 104/68 95 Room Air 09/26/24 08:09 09/26/24 08:45 09/26/24 08:45 09/26/24 08:45 09/26/24 08:45 09/26/24 08:45 BUCKSHOT SWAGE OPERATOR - PN: Obj Data Labs Labs: Laboratory Results - last 24 hr 09/26/24 09/26/24 06:35 09:19 WBC 4.55 RBC 3.05 L Hgb 9.1 L Hct 28.3 L MCV 93 MCH 30 MCHC 33 RDW Coeff of Jake 14.2 Plt Count 392 Neut % (Auto) 43.2 Lymph % (Auto) 42.0 [place] % (Auto) 9.9 Eos % (Auto) 4.0 Baso % (Auto) 0.7 Neut # (Auto) 1.97 Lymph # (Auto) 1.91 [place] # (Auto) 0.50 Eos # (Auto) 0.18 Baso # (Auto) 0.03 Abs Immat Gran (auto) 0.01 Imm/Tot Granulo (auto) 0.2 Fibrinogen Cancelled HCG, Quant 47.42 Blood Type B Positive Antibody Screen NEGATIVE
[2024-09-26 09:37] LABS: Slide Review Reflex No
[2024-09-26 09:45] LABS: INR 1.00 (0.91-1.10); Prothrombin Time 14.0 Seconds
--- NOTE | 2024-09-26 09:48 | SUR.PHASEII ---
0900: Pt put call light on. States she felt a gush and was feeling dizzy. Railcar Foreman and Vita RN in room. Patient had bright red blood saturating blue chux and pad. Chux and pad replaced. 905: Dr. Hernandez notified and enroute to [facility]. 15: Dr. Hernandez in room. Dr Hernandez assessed chux in garbage and chux underneath patient. Dr. Hernandez recommending pelvic exam. Railcar Foreman in room to witness. Large blood clot expelled. Dr. Hernandez recommending return to OR for procedure. Patient in agreement. Dr. Vicente notified. Dr. Hernandez requesting weight of EBL on chux and additional labs to be drawn. 920: Lab in room and lab called to cross match [address] Vicente aware patient had eaten yogurt and drank fluids during Phase II. 929: Patient in contact with her recycler forklift driver truck driver Rakesh. 0938: VSS. Patient to OR. 0945: Call into OR3. Spoke with Dmitriy LIMA to notify Dr. Hernandez EBL 222 mL.
--- NOTE | 2024-09-26 10:28 | SUR.OPER ---
PATIENT QUESTIONS ANSWERED SATISFACTORILY PREOPERATIVELY. PATIENT BROUGHT TO OR #3 PER CART. Patient positioned supine on OR #3 bed for the intubation. Pt. legs then moved into the lithotomy position for the procedure. PLACED arms bilaterally on arm boards. ? Final approval of positioning by surgeon.
--- NOTE | 2024-09-26 10:33 | P.ANES_ITS ---
Anesthesia Charges Start Date/Time Anesthesia Start Date: 09/26/24 Anesthesia Start Time: 09:39 Stop Date/Time Anesthesia Stop Date: 09/26/24 Anesthesia Stop Time: 10:33 Summary Emergency: CONTINUOUS PROCESS MACHINE OPERATOR Coding CPT Codes CPT Codes: ANESTH VAGINAL PROCEDURES - 86419 ([id number]) P1 - NORMAL HEALTHY PATIENT, QX - CONTINUOUS PROCESS MACHINE OPERATOR SADNRA W/ MED DIRECTION, QK - ELECTRONICS DEPARTMENT MANAGER 2-4 CNCRNT ANES PROC Additional Codes: Summary - Emergency: CONTINUOUS PROCESS MACHINE OPERATOR ([id number])
--- NOTE | 2024-09-26 10:33 | W.ANESCHARGE ---
Anesthesia Charges Start Date/Time Anesthesia Start Date: 09/26/24 Anesthesia Start Time: 09:39 Stop Date/Time Anesthesia Stop Date: 09/26/24 Anesthesia Stop Time: 10:33 Summary Emergency: GAME SHOW HOST Coding CPT Codes CPT Codes: ANESTH VAGINAL PROCEDURES - 18364 ([id number]) P1 - NORMAL HEALTHY PATIENT, QX - GAME SHOW HOST SANDRA W/ MED DIRECTION, QK - CARDIOVASCULAR SPECIALIST 2-4 CNCRNT ANES PROC Additional Codes: Summary - Emergency: GAME SHOW HOST ([id number])
--- NOTE | 2024-09-26 10:42 | W.PM.GYNPROC ---
Procedure Note Time Seen by Provider: 10:35 Date of procedure: 09/26/24 Will [facility] bill your pro fee for this procedure?: Yes Pre-op diagnosis: Vaginal bleeding s/p hysteroscopy D&C Retained products of conception Post-op diagnosis: Vaginal bleeding Uterine atony Procedure: Exam under anesthesia, suction dilation and curettage under ultrasound guidance, placement of intrauterine balloon Anesthesia: GETA Complications: None Surgeon: Yanet Hernandez MD Estimated blood loss (mL): 100 IV fluids (mL): 400 Urine Output (mL): 150 Pathology: specimen obtained, sent to pathology Condition: stable Disposition: same day Findings: Transabdominal ultrasound confirms intrauterine clot and bleeding, no apparent retained products of conception Procedure Description: Patient was taken to the operating room with IV running. She was positioned in dorsal lithotomy position with her legs fully supported in Yellofin stirrups. General anesthesia was administered. She was prepped and draped in the usual sterile fashion. 1g IV TXA was requested and administered. Transabdominal US was performed by [employer] tech, where the endometrial cavity was noted to be distended with blood - approximately 1.5cm at the fundus, where there was apparent layering of blood noted with dependent clot. No free fluid in the pelvis. No internal doppler flow to suggest retained products. Speculum was inserted. Cervix visualized and grasped along the anterior lip with a single-tooth tenaculum. Uterine sound was passed to 10.5cm. The cervix was noted to not require dilation to accommodate a No. 7 curved curette. The curette was then introduced under transabdominal ultrasound guidance and advanced to the fundus. The intrauterine contents were aspirated in a single pass, where blood products were confirmed to evacuate on US. Thin and homogenous endometrial stripe was noted. No return of tissue was noted in suction tubing. Immediately following this, a fine catheter was inserted into the intrauterine cavity and balloon distended with 20cc of saline. Transabdominal US was continued for several minutes, where no bleeding above nor around the fine balloon was noted. IM methergine was requested and administered to aid with uterine tone. Tenaculum was removed from the anterior lip of cervix. Hemostasis was noted. Speculum removed. In/out catheterization was performed, return of 150mL urine. Bimanual exam performed, tone palpates adequate. Repeat speculum exam again confirmed no bleeding around balloon. Procedure was deemed complete. Surgical debrief completed with above details - EBL of 100cc from this procedure. Pathologic is endometrial curettings. Patient tolerated procedure well. She was taken to recovery area in stable condition.
[2024-09-26] MEDS: miSOPROStoL 800 MCG/4 TABLET PR (11:13)
--- NOTE | 2024-09-26 11:19 | P.ANES_ITS ---
Anesthesia Charges Start Date/Time Anesthesia Start Date: 09/26/24 Anesthesia Start Time: 09:39 Stop Date/Time Anesthesia Stop Date: 09/26/24 Anesthesia Stop Time: 10:33 Summary Emergency: KAROLINA Coding CPT Codes CPT Codes: ANESTH VAGINAL PROCEDURES - 53414 ([id number]) QK - RAILROAD SUPERVISOR OF ENGINES 2-4 CNCRNT ANES PROC, QX - RUBBER EXTRUSION MACHINE OPERATOR SVC W/ MD MED DIRECTION, P1 - NORMAL HEALTHY PATIENT Additional Codes: Summary - Emergency: KAROLINA ([id number])
--- NOTE | 2024-09-26 11:19 | W.ANESCHARGE ---
Anesthesia Charges Start Date/Time Anesthesia Start Date: 09/26/24 Anesthesia Start Time: 09:39 Stop Date/Time Anesthesia Stop Date: 09/26/24 Anesthesia Stop Time: 10:33 Summary Emergency: KAROLINA Coding CPT Codes CPT Codes: ANESTH VAGINAL PROCEDURES - 60025 ([id number]) QK - DATA SCIENTIST 2-4 CNCRNT ANES PROC, QX - SURVEY STATISTICIAN SVC W/ MD MED DIRECTION, P1 - NORMAL HEALTHY PATIENT Additional Codes: Summary - Emergency: KAROLINA ([id number])
[2024-09-26] MEDS: AMPICILLIN/SULBACTAM 3 GM in 0.9 % SODIUM CHLORIDE Mini-bag 100 ML IVPB (11:23)
--- NOTE | 2024-09-26 11:33 | SUR.PHASEII ---
On entry to Phase II, patient complaint of sore throat. Asking for honey and warm water. Provided. A&Ox3. Cytotec administered and antibiotic infusion started - see eMAR. Patient speaking with Rakesh via personal cell phone. Patient provided call light. Patient understands to notify nurse of dizziness, any feelings of bleeding, pain, nausea, etc. Patient verbalizes understanding.
--- NOTE | 2024-09-26 12:05 | SUR.PHASEII ---
Lab in room for CBC repeat draw.
[2024-09-26 12:27] LABS: Hematocrit 31.4 % (33.0-51.0); Hemoglobin* 10.0 gm/dL (12.0-16.0); Immature Granulocytes Abs Auto 0.04 K/uL (0.00-0.30); Immature Granulocytes Pct Auto 0.5 %; Mean Corpuscular HGB Conc 32 gm/dL (32-36); Mean Corpuscular Hemoglobin 30 pg (26-34); Mean Corpuscular Volume 94 fL (80-100); RDW Coefficient of Variation % 14.2 % (11.5-15.5); Red Blood Count 3.34 m/uL (4.00-5.20); White Blood Count* 8.82 K/uL (4.50-11.00)
[2024-09-26 12:42] LABS: Lymphocytes Absolute Auto 0.80 K/uL (0.90-2.90); Slide Review Reflex No
--- NOTE | 2024-09-26 13:12 | SUR.PHASEII ---
1258: Dr. Hernandez in room. Balloon deflated by [address] Hernandez. No bleeding observed. VSS. Patient eating toast and drinking fluids. Patient has call light and understands to call for nurse if she experiences dizziness, lightheadedness, feels a gush of bleeding, etc. Patient verbalizes understanding. Dr. Hernandez to return at 1330 to trial balloon removal.
--- NOTE | 2024-09-26 14:01 | SUR.PHASEII ---
Dr. Hernandez in to see patient at 1330. Catheter removed at that time. Disposable underwear and peripad put in place and patient up to bathroom. Patient states she was able to void and small amount of blood was noted. Will continue to monitor.
--- NOTE | 2024-09-26 14:05 | PM.GYNPNPO ---
HEARING AID SPECIALIST - A/P Postoperative Procedures: Procedures Operation Date: 09/26/24 07:15 Actual Procedure Side Surgeon p Hysteroscopy, Dilation & Curettage Dorota Hernandez MD Operation Date: 09/26/24 09:15 <No data on this case meets the specified criteria> Time Spent With Patient Time: Total time spent is greater than 50% in coordination of care (as documented) at patient's floor/unit and/or counseling patient: HEARING AID SPECIALIST- PN:Subj Post-Op Subjective Time Seen by Provider: 14:05 Date Seen: 09/26/24 Interval history: Ildefonso is a 43-year-old seen on postop day 0 from hysteroscopy and dilation and curettage in the setting of suspected retained products of conception. Her procedure itself was uncomplicated, but she had acute vaginal bleeding about 1 hour postoperatively. She subsequently return to the operating room for exam under anesthesia, suction D&C to evacuate hematometra and placement of intrauterine fine catheter for tamponade. Total EBL throughout the day is 347mL. Patient is now 2 hours after intrauterine catheter placement. Repeat labs demonstrate stable hemoglobin. Prior to procedure, hemoglobin was 9.1, just prior to her return to the OR hemoglobin was 9.5, now it is 10.0. Platelets are within normal limits at 3:57 a.m., coags prior to her return to the or within normal limits. Patient is feeling well, denies any significant pain with catheter. She denies dizziness/lightheadedness, chest pain or dyspnea. Reviewed her course again in detail. Patient has received 1 g of IV TXA and 0.2 mg IM Methergine the operating room. She received 800 mcg of Cytotec [place] postoperatively. She received 3g unasyn. Vital signs are noted to be normal, she has a borderline hypotension at baseline which is unchanged from previous. No tachycardia, heart rate in the 50s to 60s. At 1300, I presented to the bedside and reduced the volume of intrauterine balloon from 20cc to 10cc. Fundal massage completed, no bleeding around catheter. At 1330, I returned to bedside where no bleeding was noted on pad and then proceeded to take out the remaining 10cc of fluid in balloon and remove the intrauterine catheter. A tiny amount of blood was noted to come out with the catheter itself. No ongoing bleeding noted with fundal massage. Patient was again monitored for any sign of recurrent heavy bleeding. She voided spontaneously with [] ongoing bleeding. Has been up to ambulate, denies dizziness/lightheadedness. Tolerating PO intake without nausea/vomiting. Throughout this period, no abnormal bleeding was again noted. VS remain within normal limits. Plan to discharge to home with strict return precautions. Plan to empirically treat for endometritis, as this could contribute to abnormal bleeding in the postoperative period. That said, my clinical suspicion is overall very low. Patient was afebrile throughout her course, no leukocytosis, no bimanual tenderness (no report of abdominal/pelvic pain, nausea/vomiting, fever/chills) and hysteroscopic evaluation was negative for any evidence of infection (hyperemia, purulence etc.). Plan to treat with a 7 day course of Augmentin out of an abundance of precaution. In addition, will send her with a prescription for Methergine 0.2 mg p.o. to be taken every 6 hours for a total of 48 hours to prevent bleeding from uterine atony. All questions answered to the best my abilities. Very strict return precautions reinforced. HEARING AID SPECIALIST-PN: Obj Exam Physical Exam: Vital signs: Temp Pulse Resp BP Pulse Ox O2 Del Method 98.2 F 51 L 16 99/65 100 Room Air 09/26/24 10:45 09/26/24 13:50 09/26/24 13:50 09/26/24 13:50 09/26/24 13:50 09/26/24 13:50 HEARING AID SPECIALIST - PN: Obj Data Labs Labs: Laboratory Results - last 24 hr 09/26/24 09/26/24 09/26/24 06:35 09:19 09:19 WBC 4.55 6.09 RBC 3.05 L 3.15 L Hgb 9.1 L 9.5 L Hct 28.3 L 29.7 L MCV 93 94 MCH 30 30 MCHC 33 32 RDW Coeff of Jake 14.2 14.3 Plt Count 392 365 Neut % (Auto) 43.2 69.3 Lymph % (Auto) 42.0 24.3 [place] % (Auto) 9.9 3.1 Eos % (Auto) 4.0 1.8 Baso % (Auto) 0.7 0.5 Neut # (Auto) 1.97 4.22 Lymph # (Auto) 1.91 1.48 [place] # (Auto) 0.50 0.20 Eos # (Auto) 0.18 0.11 Baso # (Auto) 0.03 0.03 Abs Immat Gran (auto) 0.01 0.06 Imm/Tot Granulo (auto) 0.2 1.0 INR 1.00 APTT 33 Fibrinogen 329 Cancelled HCG, Quant 47.42 Blood Type B Positive Antibody Screen NEGATIVE Crossmatch ([facility]) See Detail 09/26/24 12:08 WBC 8.82 RBC 3.34 L Hgb 10.0 L Hct 31.4 L MCV 94 MCH 30 MCHC 32 RDW Coeff of Jake 14.2 Plt Count 357 Neut % (Auto) 89.7 H Lymph % (Auto) 8.6 L [place] % (Auto) 0.9 Eos % (Auto) 0.0 Baso % (Auto) 0.3 Neut # (Auto) 7.90 H Lymph # (Auto) 0.80 L [place] # (Auto) 0.10 Eos # (Auto) 0.00 Baso # (Auto) 0.03 Abs Immat Gran (auto) 0.04 Imm/Tot Granulo (auto) 0.5 INR APTT Fibrinogen HCG, Quant Blood Type Antibody Screen Crossmatch ([facility])
--- NOTE | 2024-09-26 14:27 | SUR.PHASEII ---
1420 - checked patient's cherie-pad. Pad saturated with blood after [address] Hernandez updated and coming over to take with patient.
--- NOTE | 2024-09-26 14:57 | P.DS_ITS ---
Transfer Discharge Sum: Prov Provider Time Seen by Provider: 14:57 Date Seen: 09/26/24 Primary care physician: Not a Local Provider Admitting clinician: Dorota Hernandez Attending physician on discharge: Dorota Hernandez DS: Diagnosis Discharge Diagnosis (1) Vaginal bleeding: Status: Acute (2) Retained products of conception: Status: Acute (3) Anemia: Status: Acute Transfer Discharge Sum: Med Medications Active and Home Medications: Home Medications vit no.95-ferrous fumarate 28 mg-folic acid 800 mcg tablet ( Multivitamins) 1 tab PO DAILY 10/08/22 [History Confirmed 09/26/24] calcium carbonate 600 mg PO QDAY 04/25/24 [History Confirmed 09/26/24] cholecalciferol (vitamin D3) 50 mcg (2,000 unit) capsule 50 mcg PO QDAY 04/25/24 [History Confirmed 09/26/24] omega 0-eak-rsi-fish oil 1,000 mg (120 mg-180 mg) capsule (Fish Oil) 1 cap PO QDAY 04/25/24 [History Confirmed 09/26/24] ferrous sulfate 325 mg (65 mg iron) tablet 325 mg PO DAILY 09/24/24 [History Confirmed 09/26/24] amoxicillin 875 mg-potassium clavulanate 125 mg tablet 1 tab PO BID #14 tabs 09/26/24 [Rx] methylergonovine 0.2 mg tablet 0.2 mg PO QID 2 days #8 tabs 09/26/24 [Rx] Active Medications Acetaminophen (Acetaminophen 500 Mg Tablet) 1,000 mg PO Q6H PRN PRN Reason: Pain Ephedrine Sulfate (Ephedrine Sulfate 5 Mg/Ml Inj) 5 - 10 mg IVP Q5M PRN Fentanyl (Fentanyl 100 Mcg/2 Ml Inj) 50 mcg IVP Q5M PRN PRN Reason: Pain Hydralazine HCl (Hydralazine Hcl 20 Mg/Ml Inj) 10 mg IVP ONCE PRN PRN Reason: Hypertension Hydromorphone HCl (Hydromorphone 0.5 Mg/0.5 Ml Inj) 0.5 mg IVP Q10M PRN PRN Reason: Pain Lactated Ringer's (Lactated Ringers 1000 Ml) 1,000 mls @ 100 mls/hr IV .Q10H ANDREA Last Infusion: 09/26/24 10:58 Dose: 30 mls/hr Ampicillin Sodium/Sulbactam (Sodium 3 gm/ Sodium Chloride) 100 mls @ 200 mls/hr IVPB Q6H ANDREA Last Infusion: 09/26/24 11:56 Dose: Infused Labetalol HCl (Labetalol Hcl 5 Mg/Ml Inj) 5 - 10 mg IVP ONCE PRN PRN Reason: Hypertension Meperidine HCl (Meperidine 25 Mg/Ml Inj) 12.5 mg IVP ONCE PRN PRN Reason: Shivering Ondansetron HCl (Ondansetron 2 Mg/Ml Inj) 4 mg IVP ONCE PRN PRN Reason: Nausea Phenylephrine HCl (Phenylephrine 100 Mcg/Ml Syringe) 100 mcg IVP Q5M PRN Sodium Chloride (Sodium Chloride 0.9 % (Flush) 10 Ml Syringe) 10 ml IVF .FLUSH PRN Last Admin: 09/26/24 06:48 Dose: 10 ml Sodium Chloride (0.9 % Sodium Chloride 500 Ml) 250 ml IV ONCE PRN Stop: 09/27/24 23:59 Transfer Discharge Sum: Hosp Hospital Course Hospital course: Ildefonso is a 43-year-old seen on postop day 0 from hysteroscopy and dilation and curettage in the setting of suspected retained products of conception. Her procedure itself was uncomplicated, but she had acute vaginal bleeding about 1 hour postoperatively. She subsequently return to the operating room for exam under anesthesia, suction D&C to evacuate hematometra and placement of intrauterine fine catheter for tamponade. Total EBL throughout the day is 347mL. Approximately 2.5 hours after intrauterine catheter placement, I returned to the bedside. Repeat labs demonstrated stable hemoglobin. Prior to procedure, hemoglobin was 9.1, just prior to her return to the OR hemoglobin was 9.5, now it is 10.0. Platelets are within normal limits at 357, coags prior to her return to the or within normal limits. Patient was feeling well, denies any significant pain with catheter. She denies dizziness/lightheadedness, chest pain or dyspnea. Reviewed her course again in detail. Patient has received 1 g of IV TXA and 0.2 mg IM Methergine the operating room. She received 800 mcg of Cytotec [place] postoperatively. She received 3g unasyn. Vital signs are noted to be normal, she has a borderline hypotension at baseline which is unchanged from previous. No tachycardia, heart rate in the 50s to 60s. At 1300, I presented to the bedside and reduced the volume of intrauterine balloon from 20cc to 10cc. Fundal massage completed, no bleeding around catheter. At 1330, I returned to bedside where no bleeding was noted on pad and then proceeded to take out the remaining 10cc of fluid in balloon and remove the intrauterine catheter. A tiny amount of blood was noted to come out with the catheter itself. No ongoing bleeding noted with fundal massage. Patient was again monitored for any sign of recurrent heavy bleeding. She voided spontaneously with scant bleeding with wiping. She laid back down, where ongoing monitoring was reassuring. At 0222 I was notified she had recurrent heavy bleeding, soaking a pad x2. Repeat VS were unchanged. I returned to the bedside, where pelvic exam was completed. A 4x5cm clot was visualized vaginally, evacuated. External os was dilated to about 0.5cm, bleeding noted through external os. Cervix was prepped with betadine swabs, then tenaculum applied to anterior cervix. A fine catheter was passed into the uter ine cavity, balloon filled with 25cc of sterile saline. Transabdominal US performed confirming proper placement, no apparent bleeding above/around catheter balloon. No active bleeding through os. Stat repeat CBC and coags ordered - Hgb 9.7, INR 1.05, aPTT 33, fibrinogen 342. She has not received any blood transfusions. Given her recurrent bleeding despite conservative measures, I recommend transfer to a facility with access to interventional radiology in the event of ongoing bleeding that could require uterine artery embolization. Ildefonso is hopeful for future pregnancies, but understands our first priority is her safety and treatment of acute bleeding secondary to retained POC. My clinical suspicion for endometritis is overall very low. Patient was afebrile throughout her course, no leukocytosis, no bimanual tenderness on exams on 09/24 nor today, no report of abdominal/pelvic pain, nausea/vomiting and hysteroscopic evaluation was negative for any evidence of infection (hyperemia, purulence etc.). Still, she did receive 3g Unasyn starting at 1156 as treatment of possible endometritis as this could contribute to her bleeding. Transfer was requested via Telephonic Rn to [place] system. [facility] responded, ultimately they felt [facility] was more suitable due to available services. Accepting physician is Dr. Shayna Drake at [facility] of [employer] [facility] [place]. Provider to provider SBAR was provided. Plan to transfer via ground. Time Spent with Patient Time attestation: Total time spent providing and/or coordinating transfer services: Total time spent: Greater than 30 minutes Exam 2 Narrative: Exam Narrative: Vital signs as noted below. General: Alert and oriented, in no acute distress Psych: Appropriate mood and affect Abdomen: Soft, nontender nondistended. Pelvic: Details of intrauterine balloon placement above. No ongoing bleeding into the Fine bag/tubing noted, no bleeding around catheter. Uterus palpates firm with fundal massage. Const: Vital Signs, click to edit/add: Vital Signs - 24 hr 09/26/24 06:49 09/26/24 08:09 09/26/24 08:15 Temperature 97.9 F 97.9 F Pulse Rate 54 L 62 63 Respiratory Rate 16 16 16 Blood Pressure 105/66 89/58 L 92/57 L Pulse Oximetry 100 95 96 Oxygen Delivery Me thod Room Air Room Air Room Air 09/26/24 08:30 09/26/24 08:45 09/26/24 09:00 Temperature Pulse Rate 54 L 63 62 Respiratory Rate 16 16 16 Blood Pressure 93/63 104/68 102/68 Pulse Oximetry 99 95 100 Oxygen Delivery Me thod Room Air Room Air Room Air 09/26/24 09:05 09/26/24 09:15 09/26/24 09:21 Temperature Pulse Rate 62 59 L 59 L Respiratory Rate 16 16 16 Blood Pressure 99/66 101/67 Pulse Oximetry 96 100 94 Oxygen Delivery Me thod Room Air Room Air Room Air 09/26/24 09:30 09/26/24 10:30 09/26/24 10:35 Temperature 98.0 F Pulse Rate 54 L 90 82 Respiratory Rate 16 18 14 Blood Pressure 103/76 112/75 111/77 Pulse Oximetry 100 92 93 Oxygen Delivery Me thod Room Air Room Air Room Air 09/26/24 10:40 09/26/24 10:45 09/26/24 10:50 Temperature 98.2 F Pulse Rate 76 85 75 Respiratory Rate 16 14 12 Blood Pressure 103/65 95/77 102/59 L Pulse Oximetry 95 96 96 Oxygen Delivery Me thod Room Air Room Air Room Air 09/26/24 10:55 09/26/24 11:01 07/18/25 11:02 Temperature Pulse Rate 68 80 76 Respiratory Rate 14 16 16 Blood Pressure 91/71 109/65 93/51 L Pulse Oximetry 98 95 98 Oxygen Delivery Me thod Room Air Room Air Room Air 09/26/24 11:15 09/26/24 11:30 09/26/24 11:45 Temperature Pulse Rate 58 L 57 L 57 L Respiratory Rate 16 16 16 Blood Pressure 101/68 94/63 96/66 Pulse Oximetry 98 97 97 Oxygen Delivery Me thod Room Air Room Air Room Air 09/26/24 12:00 09/26/24 12:15 09/26/24 12:17 Temperature Pulse Rate 53 L 53 L 54 L Respiratory Rate 16 16 16 Blood Pressure 99/63 89/59 L 98/62 Pulse Oximetry 97 99 99 Oxygen Delivery Me thod Room Air Room Air 09/26/24 12:30 09/26/24 12:45 09/26/24 13:00 Temperature Pulse Rate 46 L 59 L 51 L Respiratory Rate 16 16 16 Blood Pressure 92/57 L 98/61 98/60 Pulse Oximetry 100 100 100 Oxygen Delivery Me thod Room Air Room Air Room Air 09/26/24 13:30 09/26/24 13:50 09/26/24 14:30 Temperature Pulse Rate 54 L 51 L 78 Respiratory Rate 16 16 16 Blood Pressure 99/64 99/65 106/66 Pulse Oximetry 100 100 97 Oxygen Delivery Me thod Room Air Room Air Room Air Transfer Discharge Sum: Data Data Completed and Pending Completed studies during hospitalization: Procedures Delivery of Products of Conception, External Approach (10/09/22) Repair Vagina, Via Natural or Artificial Opening (10/09/22) Discharge Plan Discharge Disposition: General Acute Hospital Discharging Surgeon: Dorota Hernandez Follow-Up Appointment: October 17 at 12:[address] Hernandez at [facility] Prescriptions: New methylergonovine 0.2 mg tablet 0.2 mg PO QID 2 Days Qty: 8 0RF amoxicillin-pot clavulanate 875-125 mg tablet 1 tab PO BID Qty: 14 0RF Continued ferrous sulfate 325 mg (65 mg iron) tablet 325 mg PO DAILY calcium carbonate 600 mg calcium (1,500 mg) tablet 600 mg PO QDAY omega 0-tlv-qbg-fish oil [Fish Oil] 1,000 (120-180) mg capsule 1 cap PO QDAY cholecalciferol (vitamin D3) 50 mcg (2,000 unit) capsule 50 mcg PO QDAY PNV no.95-ferrous fumarate-FA [ Multivitamins] 28 mg iron- 800 mcg tablet 1 tab PO DAILY Activity Level: Activity as Tolerated Discharge Diet: Regular Patient Instructions: Deep Sedation (DC), Hysteroscopy (DC), Dilation and Curettage, Hysteroscopy Discharge Instructions Follow-up: Dorota Hernandez MD [Staff Physician, ASSOCIATE PROFESSOR OF ART] - 10/17/24 12:45 pm Provider,Not a Local [Primary Care Provider, Family Practice]
[2024-09-26 15:14] LABS: Hematocrit 30.1 % (33.0-51.0); Hemoglobin* 9.7 gm/dL (12.0-16.0); Immature Granulocytes Abs Auto 0.05 K/uL (0.00-0.30); Immature Granulocytes Pct Auto 0.6 %; Mean Corpuscular HGB Conc 32 gm/dL (32-36); Mean Corpuscular Hemoglobin 30 pg (26-34); Mean Corpuscular Volume 94 fL (80-100); RDW Coefficient of Variation % 14.1 % (11.5-15.5); Red Blood Count 3.20 m/uL (4.00-5.20); White Blood Count* 8.49 K/uL (4.50-11.00)
[2024-09-26 15:15] LABS: Lymphocytes Absolute Auto 0.70 K/uL (0.90-2.90); Slide Review Reflex No
[2024-09-26 15:33] LABS: INR 1.05 (0.91-1.10); Prothrombin Time 14.5 Seconds
--- NOTE | 2024-09-26 16:39 | SUR.PHASEII ---
Patient transferred to OB unit to wait for transfer to another facility. Report given to OB RN Dana.
--- NOTE | 2024-09-26 19:11 | PC.NURSE ---
Pt. has a few spots of blood on her pad that leaked around her fine catheter. Waiting to hear back from the receiving hospital for a bed. Pt. updated. Pt has inquired about going to [place] possibly if the [facility] will not accept soon.
== END 2024-09-26 21:20 | disposition short-term general hospital (02) ==
LOC: OR 15:36 → OB 21:49
PROVIDERS: Visit Provider Obstetrics & Gynecology
PROC: (CPT 59812; principal; 2024-09-26 07:15)
DX: O03.4 Incomplete spontaneous abortion without complication (principal); N99.820 Postprocedural hemorrhage of a genitourinary system organ or structure following a genitourinary system procedure; N93.9 Abnormal uterine and vaginal bleeding, unspecified; D64.9 Anemia, unspecified
CPT/HCPCS: 59812; 59899; 00940; 00952; 01965; 36415; 75989; 76998; 84702; 85018; 85025; 85384; 85610; 85730; 86850; 86900; 86901; 86922; 88305; 99140; A4314; A9270; C1782; J0295; J0665; J1100; J1885; J2250; J2405; J2704; J3010; J7120

== ENCOUNTER 2024-09-26 21:12 | Outpatient (CLI) | payer BC, SELFPAY | END 2024-09-26 21:13 | disposition home or self-care (01) | PROVIDERS: Visit Provider Emergency Medicine Emergency Medical Services | DX: N93.9 Abnormal uterine and vaginal bleeding, unspecified (principal); O03.4 Incomplete spontaneous abortion without complication; D64.9 Anemia, unspecified | CPT/HCPCS: A0425; A0429 ==

== ENCOUNTER 2024-10-17 13:38 | Outpatient (CLI) | payer BC, SELFPAY | END 2024-10-17 13:39 | disposition home or self-care (01) | PROVIDERS: Visit Provider Obstetrics & Gynecology | DX: O03.4 Incomplete spontaneous abortion without complication (principal) | CPT/HCPCS: 84702 ==

== ENCOUNTER 2024-11-18 15:32 | Outpatient (CLI) | payer BC, SELFPAY ==
--- NOTE | 2024-11-18 15:40 | CRLHL7_ITS ---
For Patients: As a result of the Cures Act, medical imaging exams and procedure reports are released immediately into your electronic medical record. You may view this report before your referring provider. If you have questions, please contact your health care provider. INDICATION: BILATERAL SCREENING MAMMOGRAM, ASYMPTOMATIC 43 Y/O FEMALE COMPARISON: NONE AVAILABLE TECHNIQUE: Digital mammogram in CC and MLO projections including computer-aided detection (CAD) and tomosynthesis. BREAST COMPOSITION: The breasts are heterogeneously dense, which may obscure small masses. FINDINGS: No suspicious findings. ASSESSMENT: BI-RADS 1 Negative RECOMMENDATION: Annual screening mammogram. A lay language report of this examination will be provided to the patient. Dictated by: Poonam Peña MD @ 12/01/2024 20:10:00 (Electronically Signed)
== END 2024-11-18 15:33 | disposition home or self-care (01) ==
LOC: MAMMO 15:32
PROVIDERS: Visit Provider Registered Nurse
DX: Z12.31 Encounter for screening mammogram for malignant neoplasm of breast (principal); R92.333 Mammographic heterogeneous density, bilateral breasts
CPT/HCPCS: 77063; 77067